=== PATIENT | female | born 1940 | race Caucasian/White ===

== ENCOUNTER → 2017-04-14 | Outpatient (CLI) | payer OTHER, BC | LOC: BMCIMAGING 08:18 | PROVIDERS: ATTEND Internal Medicine | DX: Z12.31 Encounter for screening mammogram for malignant neoplasm of breast (principal); Z13.820 Encounter for screening for osteoporosis; M81.0 Age-related osteoporosis without current pathological fracture; Z85.3 Personal history of malignant neoplasm of breast | CPT/HCPCS: G0202 ==

== ENCOUNTER 2017-11-15 08:22 | Emergency (ER) | payer OTHER, BC ==
--- NOTE | 2017-11-15 08:30 | EDPHY ---
H & P Time Seen by Provider: 11/15/17 08:27 HPI/ROS: CHIEF COMPLAINT: Cough and fever HISTORY OF PRESENT ILLNESS: Patient started with a nonproductive cough this week on Thursday. Not short of breath and no chest pain and no hemoptysis or sputum production but then developed a fever today to 100 degrees F. Recent travel to the [place] but not to developing country. Cough is moderate, no wheezing, no underlying lung disease. Associated with mild sore throat. Not better worse with anything. REVIEW OF SYSTEMS: Eye: no change in vision ENT: HPI Cardiac: no chest pain or syncope Pulmonary: HPI Abdomen: no vomiting, diarrhea, abdominal pain Musculoskeletal: Diffuse myalgias Skin: no rash Neuro: no headache Constitutional: HPI : no urinary symptoms A comprehensive 10 point review of systems is otherwise negative aside from elements mentioned in the history of present illness. PAST MEDICAL HISTORY: Pneumonia as a child otherwise pretty healthy. Baseline resting heart rate is around 90 Social history: Nonsmoker General Appearance: Alert and conversant, cooperative. Eyes: No scleral icterus. ENT, Mouth: Normal mucous membranes. No angioedema in mild pharyngeal erythema but no exudate or tonsillar swilling. Respiratory: Normal respiratory effort, breath sounds equal, lungs are clear to auscultation. Speaks in full sentences. Cardiovascular: Regular rate and rhythm. Gastrointestinal: Abdomen is soft and non tender. Neurological: Alert, face symmetric, normal motor and sensory in extremities. Ambulatory. Skin: Warm and dry, no rashes. No urticaria Musculoskeletal: No peripheral edema. Good range of motion of neck. Psychiatric: Not agitated. Emergency Department course/MDM: Differential includes but not limited to URI, influenza, pneumonia. I think that cardiac or venous thromboembolism are both unlikely. UTI unlikely. Normal saline 1 L, CBC and chemistry, chest x-ray and influenza testing. 948: Results discussed, does not look toxic, comfortable going home. Symptomatic treatment. HR down to around 100. Smoking Status: Never smoked Constitutional: Initial Vital Signs Temperature (C) 37 C 11/15/17 08:27 Heart Rate 124 H 11/15/17 08:27 Respiratory Rate 18 11/15/17 08:27 Blood Pressure 129/97 H 11/15/17 08:27 O2 Sat (%) 94 11/15/17 08:27 Allergies/Adverse Reactions: No Known Allergies Allergy (Unverified 11/15/17 08:26) Home Medications: Medication Instructions Recorded Detrol 11/15/17 Lipitor 11/15/17 Medical Decision Making - Diagnostics Imaging Results: Imaging Impressions Chest X-Ray 11/15/17 08:38 Impression: 1. Mild bronchitis/airways disease. 2. No definite focal pneumonia. Chest x-ray personally interpreted shows bronchitis but not pneumonia Imaging: I viewed and interpreted images myself - Data Points Laboratory Results: Laboratory Results 11/15/17 08:50 11/15/17 08:50 11/15/17 11/15/17 11/15/17 08:50 08:50 08:50 WBC 11.75 10^3/uL H 10^3/uL (3.80-9.50) RBC 4.69 10^6/uL 10^6/uL (4.18-5.33) Hgb 14.3 g/dL g/dL (12.6-16.3) Hct 43.4 % % (38.0-47.0) MCV 92.5 fL fL (81.5-99.8) MCH 30.5 pg pg (27.9-34.1) MCHC 32.9 g/dL g/dL (32.4-36.7) RDW 12.5 % % (11.5-15.2) Plt Count 319 10^3/uL 10^3/uL (150-400) MPV 10.5 fL fL (8.7-11.7) Neut % (Auto) 77.6 % H % (39.3-74.2) Lymph % (Auto) 13.0 % L % (15.0-45.0) [place] % (Auto) 7.7 % % (4.5-13.0) Eos % (Auto) 0.7 % % (0.6-7.6) Baso % (Auto) 0.7 % % (0.3-1.7) Nucleat RBC Rel Count 0.0 % % (0.0-0.2) Absolute Neuts (auto) 9.13 10^3/uL H 10^3/uL (1.70-6.50) Absolute Lymphs (auto) 1.53 10^3/uL 10^3/uL (1.00-3.00) Absolute Monos (auto) 0.90 10^3/uL H 10^3/uL (0.30-0.80) Absolute Eos (auto) 0.08 10^3/uL 10^3/uL (0.03-0.40) Absolute Basos (auto) 0.08 10^3/uL 10^3/uL (0.02-0.10) Absolute Nucleated RBC 0.00 10^3/uL 10^3/uL (0-0.01) Immature Gran % 0.3 % % (0.0-1.1) Immature Gran # 0.03 10^3/uL 10^3/uL (0.00-0.10) Sodium 142 mEq/L mEq/L (135-145) Potassium 4.1 mEq/L mEq/L (3.5-5.2) Chloride 105 mEq/L mEq/L (97-110) Carbon Dioxide 22 mEq/l mEq/l (22-31) Anion Gap 15 mEq/L mEq/L (8-16) BUN 13 mg/dL mg/dL (7-23) Creatinine 0.6 mg/dL mg/dL (0.6-1.0) Estimated GFR > 60 Glucose 132 mg/dL H mg/dL (70-100) Calcium 10.4 mg/dL mg/dL (8.5-10.4) Nasal Influenza A PCR NEGATIVE FOR FLU A (NEGATIVE) Nasal Influenza B PCR NEGATIVE FOR FLU B (NEGATIVE) Medications Given: Discontinued Medications Acetaminophen (Tylenol) 650 mg PO EDNOW ONE Stop: 11/15/17 08:49 Last Admin: 11/15/17 08:53 Dose: 650 mg Sodium Chloride (Ns) 1,000 mls @ 0 mls/hr IV ONCE ONE; Wide Open PRN Reason: Protocol Stop: 11/15/17 08:38 Last Admin: 11/15/17 08:49 Dose: 1,000 mls Departure - Departure Disposition: Home, Routine, Self-Care Clinical Impression: URI (upper respiratory infection) Qualifiers: URI type: unspecified viral URI Qualified Code(s): J06.9 - Acute upper respiratory infection, unspecified Condition: Good Instructions: Upper Respiratory Infection (ED) Referrals: Carolina Riggs MD [[facility] [place] Primary Care Provider] - 11/17/17
[2017-11-15] MEDS ORDERED: NS 1,000 ML IV ONE (08:37)
[2017-11-15] MEDS ORDERED: ACETAMINOPHEN 325 MG TAB PO ONE (08:48)
[2017-11-15 09:02] LABS: PLATELET COUNT 319 10^3/uL (150-400)
[2017-11-15 10:15] VITALS: BP 144/90; PULSE 96; RESP 16; O2SAT 93
[2017-11-15 10:16] VITALS: TEMP 99.1
== END 2017-11-15 10:16 | disposition home or self-care (01) ==
DX: J06.9 Acute upper respiratory infection, unspecified (principal)

== ENCOUNTER → 2018-08-10 | Outpatient (CLI) | payer OTHER, BC | LOC: FIMAGING 08:44 | PROVIDERS: ATTEND Internal Medicine Endocrinology, Diabetes & Metabolism | DX: M81.0 Age-related osteoporosis without current pathological fracture (principal) ==